=== PATIENT | male | born 1995 | race Caucasian/White ===

== ENCOUNTER 2019-01-26 20:14 | Emergency (ER) | payer MEDICAID, OTHER ==
[~2019-01-26] VITALS: Ht 177.8 cm; Wt 100.9 kg
[~2019-01-26 20:14] MED LIST: CYCL10TA7 PO; HYDR-3498 PO; IBUP-1542 PO; NAPR-985 PO
[2019-01-26 20:21] VITALS: BP 146/65; PULSE 99; RESP 16; Ht 177.8 cm; Wt 100.9 kg
[2019-01-26] MEDS ORDERED: LORAZEPAM 1 MG TAB PO ONE (22:00)
[2019-01-26] MEDS ORDERED: KETOROLAC 60 MG INJ IM STA (22:00)
[2019-01-26] MEDS ORDERED: NAPR-985 PO (23:30)
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
== END 2019-01-26 23:49 | disposition home or self-care (01) ==
LOC: FTE 20:14
DX: M54.5 Low back pain (principal); R10.9 Unspecified abdominal pain; F17.210 Nicotine dependence, cigarettes, uncomplicated
CPT/HCPCS: 71250; 74176; 96372; 99285; J1885